=== PATIENT | female | born 1965 | race Caucasian/White ===

== ENCOUNTER 2024-08-18 13:04 | Emergency (ER) | payer SELFPAY ==
[2024-08-18 13:08] VITALS: BP 158/110; PULSE 106; RESP 18; TEMP 35.8; O2SAT 99; BMI 30.9
--- NOTE | 2024-08-18 13:59 | ED.RN ---
Pt called for ED room from waiting room. Pt not able to be located, restroom and outside checked.
== END 2024-08-18 14:08 | disposition left against medical advice (07) ==
LOC: ED 14:07
DX: Z53.21 Procedure and treatment not carried out due to patient leaving prior to being seen by health care provider (principal)

== ENCOUNTER 2024-09-04 05:21 | Emergency (ER) | payer OTHER, SELFPAY ==
[2024-09-04 05:22] VITALS: BP 179/108; PULSE 95; RESP 18; TEMP 36.4; O2SAT 100; BMI 32.9
--- NOTE | 2024-09-04 06:17 | EX.ED.DYSGE1 ---
HPI History of Present Illness Chief Complaint: Abn Labs Informant: patient Narrative Narrative: Presents for evaluation abnormal labs obtain through outpatient lab facility of [facility]. States she has been paying for labs for evaluation. History of malabsorption issues with a history of gastric bypass. She received some labs 15 days ago noting vitamin D of 12, B12 of 211, slightly elevated haptoglobin 238. Previous anemia 2 years ago requiring blood transfusion however hemoglobin 12.7. She lost her job in December therefore no insurance. She states she was called by physician yesterday from her labs was told of the abnormal levels and was told to see a PCP. She does not have a PCP, she has had experience at the hospital here with her parents therefore came to the ED to try to help with her lab abnormalities. Reports history of chronic pain issues that she takes Aleve. She states she is receiving B12 injections every few months through her doctor. She denies vomiting or diarrhea.She currently uses [id number]-opf-[id number] vitamin D. She states typically injections helps her labs. Prior similar symptoms: Yes PFSH [facility] Medical History Chronic pain Anemia Home Medications ?Medication ?Instructions ?Recorded ?Last Taken ?Type bupropion HCl 200 mg tablet,12 hr 200 mg PO BID 09/04/24 Unknown History sustained-release cyanocobalamin (vitamin B-12) 1,000 mcg IM QMONTH 09/04/24 Unknown History 1,000 mcg/mL injection solution Allergy/AdvReac Type Severity Reaction Status Date / Time Latex, Natural Rubber Allergy Shortness Verified 09/04/24 05:21 of breath tetanus and diphtheria Allergy Other Verified 09/04/24 05:21 toxoids Surgical History Gastric bypass status for obesity Social History Smoking Status: Never smoker ROS ROS ED Constitutional Constitutional ED: Denies fever(s) Cardiovascular Cardiovascular: Denies chest pain Respiratory/Chest Respiratory/Chest: Denies cough Gastrointestinal Gastrointestinal: Denies diarrhea or vomiting Musculoskeletal Musculoskeletal: Denies none Integumentary Denies rash or wounds Neurologic Neurologic: Denies weakness EXAM Physical Exam Const Vital Signs: 09/04/24 05:22 Temperature 97.6 F L Temperature Source Oral Pulse Rate 95 Respiratory Rate 18 Blood Pressure 179/108 H Blood Pressure Mean 131 Pulse Ox 100 Oxygen Delivery Method Room Air Positive well nourished and well developed General Appearance ED: well developed HEENT normocephalic and atraumatic Eyes General Eye ED: Yes normal appearance of both eyes Neck full ROM Resp normal respiratory effort and normal air movement Cardio regular rate and regular rhythm GI soft to palpation Extremity normal to inspection and full ROM Neuro oriented x3 Skin no rashes or lesions noted and no wounds MDM MDM MDM Narrative Medical decision making narrative: Interventions / MDM: Differential diagnosis: Low vitamin D, history of gastric bypass Diagnosis considered but do not suspect: N/A My EKG interpretation: N/A Imaging independently reviewed and interpreted by myself: N/A External documents reviewed: N/A Test considered but not ordered:N/A ED course: Patient nontoxic. Evaluating her records from her paperwork from labs 15 days ago vitamin D of 12. Her B12 normal range of 211 on the low end. Haptoglobin 238 slightly above normal levels. Discussed patient no treatment in the hospital for injections for these levels. I discussed with her vitamin D can treat with oral dose 50,000 units for which she agrees. Discussed B12 treatments were 1 mg of hydroxocobalamin which is not in formulary here. The discussed these are normal levels however she states she feels better with higher levels. Haptoglobin can be elevated with her chronic pain issues. She has no bleeding concerns at this time. Discussed this with the patient she is referred to the [facility] clinic for continued care. She will continue her oral vitamin D. All her questions were answered. Re-evaluation: stable Disposition discussed with patient/family/significant other: Patient Case discussed with consulting clinician: N/A This note was generated with [employer] dictation software. It may contain incorrect words, spelling, and punctuation that were not noted in checking the note before signing. Discharge Plan Triage Chief Complaint: Abn Labs ED Provider: Heron Rodney Dx/Rx/DC Orders Clinical Impression: Low serum vitamin D, History of gastric bypass Prescriptions: No Action cyanocobalamin (vitamin B-12) 1,000 mcg/mL solution 1,000 mcg IM QMONTH bupropion HCl 200 mg tablet sustained-release 12 hr 200 mg PO BID Primary Care Provider: Care Physician,No Primary Referrals: Care Physician,No Primary [Primary Care Provider] - Lexis Bess [facility], DO [[facility]] - 3-5 Days Activity Restrictions/Additional Instructions: Evaluation of your labs you have a low vitamin D at 12. You are given oral dose of 50,000 units. Continue your daily [id number] vitamin D. Your B12 normal range the labs, further treatment can be discussed with primary care team. Your haptoglobin likely elevated from your chronic pain issues. Print Language: Belgian Disposition Disposition: Home, Self Care
[2024-09-04] MEDS: Ergocalciferol 1.25 MG (50, 000 UNIT) Capsule PO (07:09)
[2024-09-04 07:13] VITALS: BP 142/96; PULSE 78; RESP 16; TEMP 36.3; O2SAT 96
== END 2024-09-04 07:13 | disposition home or self-care (01) ==
PROVIDERS: Emergency Provider Emergency Medicine; Visit Provider Emergency Medicine
DX: E55.9 Vitamin D deficiency, unspecified (principal); G89.29 Other chronic pain; R79.9 Abnormal finding of blood chemistry, unspecified; Z98.84 Bariatric surgery status; Z79.899 Other long term (current) drug therapy
CPT/HCPCS: 99282